=== PATIENT | female | born 1980 | race Caucasian/White ===

== ENCOUNTER → 2023-07-07 | Outpatient (CLI) | payer OTHER ==
[~2023-07-07] MED LIST: ANAPROX DS550 MG PO; CIPRO500 MG PO; CLEOCIN HCL150 MG PO; FLAGYL500 MG PO; FLEXERIL10 MG PO; FLEXERIL5 MG PO; Fioricet 325 MG1 TAB PO; MOTRIN800 MG PO; NAPROSYN500 MG PO; TRAMADOL HCL50 MG PO; TYLENOL WITH CO1 TAB PO; ULTRAM50 MG PO; VICODIN 5/500 505 MG PO; VICODIN 500 MG-1 TAB PO; ZANTAC150 MG PO; ZOFRAN ODT4 MG SL; ZOFRAN4 MG PO; ZOLOFT25 MG PO
== END | disposition home or self-care (01) ==
LOC: LAB 16:14
PROVIDERS: ATTEND Nurse Practitioner
DX: Z51.81 Encounter for therapeutic drug level monitoring (principal); F11.20 Opioid dependence, uncomplicated; Z79.899 Other long term (current) drug therapy

== ENCOUNTER → 2023-07-19 | Outpatient (CLI) | payer OTHER | END | disposition home or self-care (01) | LOC: CARD 05-27 15:00 | PROVIDERS: ATTEND Nurse Practitioner Family | DX: I07.1 Rheumatic tricuspid insufficiency (principal); R60.0 Localized edema ==

== ENCOUNTER 2025-01-03 19:19 | Emergency (ER) | payer SELFPAY ==
[~2025-01-03] VITALS: Ht 162.5 cm; Wt 95.3 kg
[2025-01-03 19:55] LABS: BASO % 0.3 % (0.0-1.0); EOS # 0.1 10*3/uL (0.0-0.4); EOS % 2.2 % (1.0-4.0); HEMATOCRIT 40.4 % (37.0-47.0); MEAN CELL VOLUME 95.5 fl (81.0-99.0); MEAN CORPUSCULAR HGB 31.2 pg (27.0-31.0); MEAN CORPUSCULAR HGB CONC 32.7 g/dl (33.0-37.0); MEAN PLATELET VOLUME 9.9 fl (9.6-12.3); MONO # 0.4 10*3/uL (0.1-1.0); NEUT # 3.4 10*3/uL (2.3-7.9); NEUT % 58.4 % (47.0-73.0); PLATELET COUNT AUTOMATED 210 10*3/uL (130-400); RED BLOOD COUNT 4.23 10*6/uL (4.10-5.10); RED CELL DISTRI WIDTH 13.8 % (0-14.5); WHITE BLOOD COUNT 5.9 10*3/uL (4.8-10.8)
[2025-01-03 19:58] LABS: BILIRUBIN 2+ (Negative); BLOOD 2+ (Negative); CLARITY Turbid (Clear); COLOR Red (Yellow); GLUCOSE Negative (Negative); KETONE Negative (Negative); LEUKO ESTERASE 2+ (Negative); NITRITE Positive (Negative); PH 7.5 (4.5-8.0); UROBILINOGEN 0.2 E.U./dl (0.0-1.0)
[2025-01-03] MEDS ORDERED: SODIUM CHLORIDE 0.9% 1,000 ML IV ONE (20:05)
[2025-01-03 20:08] LABS: BACTERIA 1+; RBC TNTC rbc/hpf (0-2); WBC 16-20 wbc/hpf (0-5)
[2025-01-03 20:17] LABS: ALKALINE PHOSPHATASE 77 U/L (46-116); BUN 8 mg/dl (9-23); CHLORIDE 104 mmol/L (98-107); POTASSIUM 3.5 mmol/L (3.4-5.1); SGPT/ALT 13 U/L (5-49); TOTAL PROTEIN 7.5 gm/dL (6.0-8.0)
[2025-01-03] MEDS ORDERED: cefTRIAXone Sodium 1 GM/10 ML SYR IV ONE (20:35)
[2025-01-03] MEDS ORDERED: IOHEXOL 300 MG/ML 100 ML VIAL ONE (20:39)
[2025-01-03] MEDS ORDERED: PERCOCET 5-3251 EACH PO (21:41)
[2025-01-03] MEDS ORDERED: Ondansetron4 MG PO (21:41)
[2025-01-03] MEDS ORDERED: CIPRO500 MG PO (21:41)
[2025-01-03] MEDS ORDERED: Ondansetron Hydrochloride 4 MG TAB SL ONE (21:45)
[2025-01-03] MEDS ORDERED: Acetaminophen/Oxycodone 5 MG/325 MG TABLET PO ONE (21:45)
== END 2025-01-03 22:46 | disposition home or self-care (01) ==
LOC: ED 19:19
PROVIDERS: Nurse Practitioner Family
DX: C79.9 Secondary malignant neoplasm of unspecified site (principal); Z85.51 Personal history of malignant neoplasm of bladder; Z88.7 Allergy status to serum and vaccine; Z88.8 Allergy status to other drugs, medicaments and biological substances; Z79.899 Other long term (current) drug therapy; Z98.890 Other specified postprocedural states

== ENCOUNTER 2025-01-28 20:06 | Emergency (ER) | payer OTHER ==
[~2025-01-28] VITALS: Ht 162.5 cm; Wt 86.2 kg
[~2025-01-28 20:06] MED LIST changes: +Ondansetron4 MG PO; +PERCOCET 5-3251 EACH PO
[2025-01-28] MEDS ORDERED: Ondansetron Hydrochloride 4 MG/2 ML VIAL IV ONE (20:35)
[2025-01-28] MEDS ORDERED: MORPHINE Sulfate 2 MG/ML SYR IV ONE (20:35)
[2025-01-28 20:59] LABS: BASO % 0.4 % (0.0-1.0); EOS # 0.2 10*3/uL (0.0-0.4); EOS % 2.9 % (1.0-4.0); HEMATOCRIT 39.9 % (37.0-47.0); MEAN CELL VOLUME 95.7 fl (81.0-99.0); MEAN CORPUSCULAR HGB 31.7 pg (27.0-31.0); MEAN CORPUSCULAR HGB CONC 33.1 g/dl (33.0-37.0); MEAN PLATELET VOLUME 9.6 fl (9.6-12.3); MONO # 0.6 10*3/uL (0.1-1.0); NEUT # 3.7 10*3/uL (2.3-7.9); NEUT % 53.8 % (47.0-73.0); PLATELET COUNT AUTOMATED 216 10*3/uL (130-400); RED BLOOD COUNT 4.17 10*6/uL (4.10-5.10); RED CELL DISTRI WIDTH 13.6 % (0-14.5); WHITE BLOOD COUNT 6.9 10*3/uL (4.8-10.8)
[2025-01-28] MEDS ORDERED: IOHEXOL 300 MG/ML 100 ML VIAL IV ONE (21:00)
[2025-01-28 21:19] LABS: ALKALINE PHOSPHATASE 67 U/L (46-116); BUN 20 mg/dl (9-23); CHLORIDE 103 mmol/L (98-107); LIPASE 32 U/L (12-53); POTASSIUM 3.8 mmol/L (3.4-5.1); SGPT/ALT 22 U/L (5-49); TOTAL PROTEIN 7.3 gm/dL (6.0-8.0)
[2025-01-28] MEDS ORDERED: Metoclopramide Hydrochloride 10 MG/2 ML VIAL IV ONE (21:55)
[2025-01-28] MEDS ORDERED: diphenhydrAMINE hydrochloride 50 MG/ML VIAL IV ONE (21:55)
[2025-01-28 22:24] LABS: BILIRUBIN Negative (Negative); BLOOD Negative (Negative); CLARITY Clear (Clear); COLOR Yellow (Yellow); GLUCOSE Negative (Negative); KETONE Trace (Negative); LEUKO ESTERASE 1+ (Negative); NITRITE Negative (Negative); PH 5.5 (4.5-8.0); SPECIFIC GRAVITY >= 1.030 (1.001-1.030)
[2025-01-28 22:41] LABS: EPITHELIAL CELLS 16-20
[2025-01-28 22:42] LABS: CALCIUM OXALATE CRYSTALS Trace
[2025-01-28 22:45] LABS: WBC 21-30 wbc/hpf (0-5)
[2025-01-28] MEDS ORDERED: HYDROCODONE-AC1 EAC1 PO (22:58)
== END 2025-01-28 23:10 | disposition home or self-care (01) ==
LOC: ED 20:06
PROVIDERS: Physician Assistant Medical
DX: G89.3 Neoplasm related pain (acute) (chronic) (principal); C78.4 Secondary malignant neoplasm of small intestine; R11.10 Vomiting, unspecified; Z98.890 Other specified postprocedural states; Z88.7 Allergy status to serum and vaccine; Z88.8 Allergy status to other drugs, medicaments and biological substances; Z79.899 Other long term (current) drug therapy